=== PATIENT | male | born 1955 | race African-American/Black ===

== ENCOUNTER 2017-01-25 13:22 | Emergency (ER) | payer OTHER ==
[2017-01-25 14:29] VITALS: BP 136/88
[2017-01-25] MEDS ORDERED: TYLENOL PO ONE (16:47)
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
== END 2017-01-25 18:24 | disposition home or self-care (01) ==
LOC: ED 13:22
DX: S86.912A Strain of unspecified muscle(s) and tendon(s) at lower leg level, left leg, initial encounter (principal); S46.912A Strain of unspecified muscle, fascia and tendon at shoulder and upper arm level, left arm, initial encounter; E11.9 Type 2 diabetes mellitus without complications; V49.49XA Driver injured in collision with other motor vehicles in traffic accident, initial encounter; Y93.9 Activity, unspecified; Y92.9 Unspecified place or not applicable; Y99.9 Unspecified external cause status